=== PATIENT | female | born 1985 | race Asian ===

== ENCOUNTER 2019-09-05 14:25 | Outpatient (CLI) | payer BC, SELFPAY ==
--- NOTE | 2019-09-05 | XR_ITS ---
WS: [id number] PROCEDURE: XR chest 2V* [id number] CLINICAL INFORMATION: COUGH COMPARISON: None. FINDINGS: Heart: Normal cardiac silhouette. Lungs: Lungs are clear. No consolidation or pleural fluid. No acute pulmonary infiltrates. Bones: Normal visualized bony structures. XR/XR chest 2V* [id number] IMPRESSION: Normal chest
== END 2019-09-05 14:26 | disposition home or self-care (01) ==
LOC: RADOUTREAD 09-06 10:52
PROVIDERS: Family Provider Family Medicine; PCP Family Medicine; Visit Provider Family Medicine
DX: Z01.89 Encounter for other specified special examinations (principal)

== ENCOUNTER 2020-08-02 09:10 | Outpatient (CLI) | payer OTHER, SELFPAY ==
--- NOTE | 2020-08-02 09:18 | CT_ITS ---
WS: [id number] CT NECK WITH CONTRAST HISTORY: CHRONIC PHARYNGITIS TECHNIQUE: Contiguous 5 mm axial images are performed through the neck with intravenous contrast. Sag ittal and coronal reformats are also submitted. All CT scans at [facility] use at least o ne of these dose optimization techniques: automated exposure control; mA and/or kV adjustment per pat ient size (includes targeted exams where dose is matched to clinical indication); or iterative recons truction. CONTRAST: CONTRAST: Omnipaque 300; 95 mL IV. DLP: 1473.31 mGycm COMPARISON: None available. Nasopharynx, oropharynx, hypopharynx and larynx are unremarkable. No soft tissue masses or abnormal e nhancement. Torus tubarius and fossa of Rosenmuller and parapharyngeal fat are normal. No significant lymphadenopathy is identified. Thyroid gland and salivary glands are normally enhancing with no masses. No osseous abnormalities. Visualized portions of the skull base demonstrate no abnormalities. Orbits and globes are within norm al limits. No soft tissue masses. Small air-fluid levels in the maxillary sinuses. Lung apices are clear. CT/CT neck w con* [id number] IMPRESSION: 1. No neck mass or adenopathy. 2. Normal parotid glands. 3. Maxillary sinusitis.
[2020-08-02] MEDS: iohexol 300 mg/mL 100 mL Btl IV (09:46)
== END 2020-08-02 09:11 | disposition home or self-care (01) ==
LOC: RADWPI 09:17
PROVIDERS: PCP Family Medicine; Visit Provider Specialist
DX: J31.2 Chronic pharyngitis (principal); J37.0 Chronic laryngitis; J32.0 Chronic maxillary sinusitis
CPT/HCPCS: 70491; Q9967

== ENCOUNTER → 2020-08-06 13:30 | Outpatient (BNVA) | payer OTHER, SELFPAY | PROVIDERS: PCP Family Medicine; Visit Provider Obstetrics & Gynecology | DX: D25.0 Submucous leiomyoma of uterus (principal); Z12.4 Encounter for screening for malignant neoplasm of cervix | CPT/HCPCS: 88175 ==

== ENCOUNTER → 2020-08-12 08:12 | Outpatient (BNVA) | payer OTHER, SELFPAY | PROVIDERS: PCP Family Medicine; Visit Provider Obstetrics & Gynecology | DX: R10.2 Pelvic and perineal pain (principal) | CPT/HCPCS: 76830 ==

== ENCOUNTER → 2022-08-13 13:03 | Outpatient (BNVA) | payer SELFPAY | PROVIDERS: PCP Family Medicine; Visit Provider Obstetrics & Gynecology | DX: R10.2 Pelvic and perineal pain (principal); N85.2 Hypertrophy of uterus | CPT/HCPCS: 76830 ==

== ENCOUNTER 2024-01-04 01:24 | Emergency (ER) | payer OTHER, SELFPAY ==
[2024-01-04 01:26] VITALS: BP 108/47; PULSE 83; RESP 16; TEMP 36.6; O2SAT 98; BMI 22.1
--- NOTE | 2024-01-04 01:41 | W.ED.ALLEREA ---
HPI - Allergic Reaction General: Chief complaint: Allergic Reaction Stated complaint: allergic reaction Time Seen by Provider: 01/04/24 01:27 Source: patient Mode of arrival: ambulatory Limitations: no limitations History of Present Illness: HPI narrative: 38-year-old female states she has had a pruritic rash to her body that started today. She states has not been on antibiotics has not had urticaria before states the rash itches all over and seems like it is moving she denies any fever denies any cough she denies any shortness of breath or throat swelling. No history of allergic reactions before Associated symptoms: Deny abdominal pain, nausea or vomiting Review of Systems Const: Denies: fever(s), chills, body aches or change in appetite ENMT: Denies: throat pain or dental pain Card: Denies: chest pain Resp: Denies: dyspnea GI: Denies: abdominal pain, nausea, vomiting or diarrhea Musc: Denies: neck pain or back pain Skin/Breast: Reports: rash and pruritus Neuro: Denies: headache(s) PFSH ED PFSH: Medical History Well woman exam with routine gynecological exam Family History Denies family history of Colon cancer Ovarian cancer Diabetes Clotting disorder Hyperlipidemia Breast cancer Anesthesia complication Bleeding disorder Hypertension Uterine cancer Thyroid condition Stroke Social History Smoking and tobacco/nicotine status: former use of tobacco/nicotine Alcohol intake: never Substance/Drug Use: never Female Reproductive History: Date of last menstrual period: 12/21/23 Physical Exam Const: COMMON NORMALS: no acute distress, patient oriented x3 and healthy appearing HENMT: COMMON NORMALS: normocephalic and atraumatic HEAD & SCALP: normocephalic and atraumatic Neck/C-Spine: COMMON NORMALS: full ROM and supple Chest: COMMONS NORMALS: normal inspection of the chest Resp: COMMON NORMALS: normal respiratory effort, No retractions, No use of accessory muscles and clear to auscultation bilaterally AUSCULTATION: clear to auscultation bilaterally Cardio: COMMON NORMALS: regular rate, regular rhythm and No murmurs present (Cardio) RATE: regular rate RHYTHM: regular rhythm Neuro: COMMON NORMALS: patient oriented x3, moves all extremities and no focal motor deficits Psych: COMMON NORMALS: mental status grossly normal, Normal thought process present and cooperative THOUGHT PROCESS: Normal thought process present Skin: COMMON NORMALS: no wounds NARRATIVE SKIN EXAM: Urticarial rash noted to arms legs and trunk Course Vital Signs: Vital signs: Vital Signs Temperature 97.9 F 01/04/24 01:26 Pulse Rate 83 01/04/24 01:26 Respiratory Rate 16 01/04/24 01:26 Blood Pressure 108/47 01/04/24 01:26 Pulse Oximetry 98 01/04/24 01:26 Oxygen Delivery Me thod Room Air 01/04/24 01:26 MDM - Allergic Reaction Medical Decision Making Patient presents here with urticaria allergic reaction her rash is much improved here after meds she had no airway involvement she is stable for discharge will discharge charge home with prescription for EpiPen and steroid she is follow-up with PCP return if worsening. Medical Records I reviewed the patient's medical records. No radiology studies performed this visit Discharge Plan Discharge Patient Disposition: Home Clinical Impression: Urticaria, Allergic reaction Prescriptions: New prednisone 50 mg tablet 50 mg PO DAILY Qty: 5 0RF epinephrine [EpiPen 2-Ap] 0.3 mg/0.3 mL auto-injector 0.3 mg IM Q30M PRN (Reason: anaphylaxis) Qty: 2 0RF Rx Instructions: do not exceed 12 doses per 24 hrs No Action Acid Reflux Medication PO DAILY Discharge Orders: Discharge ED (Routine); Ordered 01/04/24 Ordered By: Noe Mora Referrals: Tamica Lester MD [Physician] - Discharge Diet: Advance as tolerated Discharge Activity: Resume usual activity Patient Instructions: Urticaria (ED), General Allergic Reaction (ED) Coding Level of Care Code ED [employer] for Mulugeta Irvin
[2024-01-04 01:45] VITALS: BP 111/63; PULSE 91; RESP 16; O2SAT 98
[2024-01-04] MEDS: methylPREDNISolone sod succ 125 mg/2 mL INJ IVP (01:52)
[2024-01-04] MEDS: famotidine 20 mg/2 mL INJ 40 MG IVP (01:55)
[2024-01-04] MEDS: diphenhydrAMINE 50 mg/mL SDV 1mL IVP (01:59)
[2024-01-04] MEDS: EPINEPHrine 1 mg/mL INJ 0.3 MG IM (02:03)
[2024-01-04] MEDS: ondansetron 2 mg/ML SDV 2 mL 4 MG IVP (02:03)
[2024-01-04 02:15] VITALS: BP 107/63; PULSE 79; RESP 16; O2SAT 100
[2024-01-04 02:30] VITALS: BP 107/58; PULSE 79; RESP 16; O2SAT 98
== END 2024-01-04 03:07 | disposition home or self-care (01) ==
PROVIDERS: Emergency Provider Emergency Medicine; PCP Family Medicine
DX: L50.0 Allergic urticaria (principal); Z87.891 Personal history of nicotine dependence
CPT/HCPCS: 96372; 96374; 96375; 99284; J0171; J1200; J2405; J2919; J3490

== ENCOUNTER → 2025-02-26 11:35 | Outpatient (BNVA) | payer OTHER, SELFPAY | PROVIDERS: PCP Family Medicine; Visit Provider Nurse Practitioner Women's Health | DX: Z32.01 Encounter for pregnancy test, result positive (principal) | CPT/HCPCS: 81025; 84702; 86850; 86900 ==

== ENCOUNTER 2025-03-19 06:21 | Outpatient (CLI) | payer OTHER, SELFPAY ==
--- NOTE | 2025-03-19 06:30 | US_ITS ---
WS: [id number] EARLY OBSTETRICAL ULTRASOUND (<14 WEEKS). HISTORY: Z34.91 - Encounter for supervision of normal , u... COMPARISON: None available. Single intrauterine gestational sac is identified. Cardiac activity at 165 BPM. Oracle-rump length measures 4.2 cm which corresponds to a gestation of 11w1d. Normal-appearing yolk sac and amnion demonstrated. No subchorionic hemorrhage. No free fluid. Neither ovary is identified. US/US OB <= 14 weeks fetus [id number] IMPRESSION: 1. Single intrauterine gestation of 11w1d with an EDC of 10/07/2025. 2. Normal cardiac activity.
== END 2025-03-19 06:22 | disposition home or self-care (01) ==
LOC: RAD 06:22
PROVIDERS: PCP Family Medicine; Visit Provider Nurse Practitioner Women's Health
DX: Z34.91 Encounter for supervision of normal pregnancy, unspecified, first trimester (principal)
CPT/HCPCS: 76801

== ENCOUNTER → 2025-04-03 08:14 | Outpatient (BNVA) | payer OTHER, SELFPAY | PROVIDERS: PCP Family Medicine; Visit Provider Nurse Practitioner Women's Health | DX: O09.819 Supervision of pregnancy resulting from assisted reproductive technology, unspecified trimester (principal) | CPT/HCPCS: 80307; 82950; 84315; 84443; 85025; 86592; 86762; 86803; 86850; 86900; 87086; 87340; 87491; 87591; 87661; 87806 ==

== ENCOUNTER → 2025-04-30 12:50 | Outpatient (BNVA) | payer OTHER, SELFPAY | PROVIDERS: PCP Family Medicine; Visit Provider Nurse Practitioner Women's Health | DX: O09.819 Supervision of pregnancy resulting from assisted reproductive technology, unspecified trimester (principal); Z3A.00 Weeks of gestation of pregnancy not specified | CPT/HCPCS: 82105; 84315 ==

== ENCOUNTER 2025-05-16 21:41 | Emergency (ER) | payer OTHER, SELFPAY ==
--- OUTSIDE RECORDS SUMMARY | 2025-05-16 21:46 | XMS_ITS | Data Portability ---
Author Organization [facility], [facility], [facility] Address [address] [place] [id number] Care Team Providers Care [employer] Director Name Role Phone YADIEL PICHARDO Primary Care Provider [phone] Assessment Encounter Date Assessment Date Assessment LastModified by Organization Details LastModified Time 01/07/2024 01/07/2024 avoid nsaids/aspiri n entirely! [email or web address] Not available 01/07/2024 13:52:23 Plan of Treatment Reminders Order Date Submit Date Provider Last Modified By Organization Details Last Modified Time Details Appointments None recorded. Lab beta-HCG, quantitat renata, serum or plasma - ORDERED BY DR KHANNA/ WILL FAX RESULTS 2024 025 [email or web address] [facility], [address] [place], [address], 11:35:36 progester one, serum 2024 025 [email or web address] [facility], [address] [place], [address], 11:35:35 progester one, serum - ordered by Dr. Khanna/ will fax results 2024 025 [email or web address] [facility], [address] [place], [address], 06:55:34 Referral None recorded. Procedures None recorded. Surgeries None recorded. Imaging XR, chest, 2 view 2023 024 [email or web address] [facility], [address] [facility] [address], [place], [address], 4 06:08:17 Medication Orders azithromy clau 250 mg tablet 2023 024 [id number], [address] [facility] [facility] [address], [address], [place], [address], 4 13:23:28 prednison e 10 mg tablet 2023 [facility] 15, [address], [place], [address], 4 17:56:49 hydroxyzi ne HCl 25 mg tablet 2023 [facility] 15, [address], [place], [address], 4 17:56:16 Zantac-36 0 (famotidi ne) 20 mg tablet 2023 024 [facility] 15, [address], [place], [address], 4 17:56:54 hydroxyzi ne HCl 25 mg tablet 2023 024 [email or web address] [facility] 15, [address], [place], [address], 4 12:49:18 Solu-Medr ol (PF) 125 mg/2 mL solution for injection 2023 024 [email or web address] Not available 13:36:21 Patient TargetsNo targets recorded. Patient InstructionsNo instructions recorded. Reason for Referral None Reported. Results Created Date Observation Date Name Description Value Unit Range Abnormal Flag Note LastModifiedBy Organization Detail LastModifiedTime 02/02/20 25 02/02/2025 PROGE STERO NE progesterone 45.2 NG/mL normal Refer ence Range s Femal e Folli cular Phase < 1.0 Lutea l Phase 2.6-2 1.5 Post menop ausal < 0.5 Pregn ondina 1st Trime ster 4.1-3 4.0 2nd Trime ster 24.0- 76.0 3rd Trime ster 52.0- 302.0 Not Available [facility] [address] [address] [place], [address], 02/02/2025 06:55:34 02/02/2002/02/2025 HCG, TOTAL , QN HCG, total, qn 188 mIU/m L high Refer ence Range Nonpr egnan t or preme nopau valeriano <5 Postm enopa usal <10 Value s from diffe rent assay metho ds may vary. The use of this assay to monit or or to diagn ose patie nts with cance r or any condi tion unrel ated to pregn ondina has not been clear ed or appro maureen by the FDA or the [facility] actur er of the assay . Not Available [facility] [address] [address] [place], [address], 02/02/2025 06:55:36 02/06/2002/06/2025 PROGE STERO NE progesterone 38.2 NG/mL normal Refer ence Range s Femal e Folli cular Phase < 1.0 Lutea l Phase 2.6-2 1.5 Post menop ausal < 0.5 Pregn ondina 1st Trime ster 4.1-3 4.0 2nd Trime ster 24.0- 76.0 3rd Trime ster 52.0- 302.0 Not Available [facility] [address] [place], [address], 02/06/2025 11:35:35 02/06/20 25 02/06/2025 HCG, TOTAL , QN HCG, total, qn 1366 mIU/m L high Refer ence Range Nonpr egnan t or preme nopau valeriano <5 Postm enopa usal <10 Value s from diffe rent assay metho ds may vary. The use of this assay to monit or or to diagn ose patie nts with cance r or any condi tion unrel ated to pregn ondina has not been clear ed or appro maureen by the FDA or the [facility] actur er of the assay . Not Available [facility] [address] [address], [place], [address], 02/06/2025 11:35:36 06/08/20 24 06/08/2024 XR, chest , 2 view No observ ation record ed. [email or web address] [facility] [address] [place], [address], 06/13/2024 14:46:14 Result Notes None recorded. Problems Name Problem SNOMED Code Status Onset Date Resolution Date Notes Provider Name and Address Organization Details Recorded Time Allergic rhinitis 10468219 Active 2022 Chip Kline MD [address] [place] [address], [phone] , [facility] 3 18:41:48 Gastroesophage al reflux disease 484322349 Active [address] [facility] 4 13:57:47 Female infertility 8466562 Active [address] [facility] 5 10:33:49 Problem Notes None recorded. Medical Equipment None Reported. Allergies No known drug allergies Medications Name Sig Start Date Stop Date Status Note LastModified by Organization Details LastModified Time BD Regular Bevel Bee 27 gauge x 1/2 USE TO INJECT GANIRELI X 06/08 completed Not Available Not Available Not Available prednison e 10 mg tablet TAKE 4 TABLETS BY MOUTH ONCE DAILY FOR 1 DAY THEN 3 ONCE DAILY FOR 1 DAY THEN 2 ONCE DAILY FOR 1 DAY THEN 1 ONCE DAILY FOR 1 DAY THEN DISCONTI NUE 06/08 completed Not Available Not Available Not Available doxycycli ne hyclate 100 mg capsule TAKE 1 CAPSULE BY MOUTH TWICE DAILY FOR 7 DAYS 11/21 completed Not Available Not Available Not Available azithromy clau 250 mg tablet TAKE 2 TABLETS (500 MG) BY ORAL ROUTE ONCE DAILY FOR 1 DAY THEN 1 TABLET (250 MG) BY ORAL ROUTE ONCE DAILY FOR 4 DAYS active Not Available Not Available No t Available tizanidin e 4 mg tablet PLEASE SEE ATTACHED FOR DETAILED DIRECTIO NS 11/10 completed Not Available Not Available Not Available sucralfat e 1 gram tablet TAKE 1 TABLET BY MOUTH BEFORE MEALS AND AT BEDTIME 11/10 completed Not Available Not Available Not Available NyQuil 7.5 mg-60 mg-30mg-1 000mg/30m L oral liquid Take by oral route. active Not Available Not Available No t Available betametha sone acetate and sodium phos 6 mg/mL suspensio n for injection Take 1 mL by injectio n route for 1 day. 11/21 completed Not Available Not Available Not Available famotidin e 20 mg tablet TAKE 1 TABLET BY MOUTH TWICE DAILY 06/08 completed Not Available Not Available Not Available benzonata te 100 mg capsule TAKE 1 CAPSULE BY MOUTH THREE TIMES DAILY NEEDED 11/21 completed Not Available Not Available Not Available pantopraz ole 40 mg tablet,de layed release TAKE 1 TABLET BY MOUTH EVERY DAY 11/10 completed Not Available Not Available Not Available prednison e 50 mg tablet 06/08 completed Not Available Not Available Not Available indometha clau 50 mg capsule TAKE 1 CAPSULE BY MOUTH EVERY 12 HOURS WITH FOOD 06/08 completed Not Available Not Available Not Available omeprazol e 20 mg capsule,d elayed release 1 qd 06/08 completed Not Available Not Available Not Available hydroxyzi ne HCl 25 mg tablet Take 1 tablet 3 times a day by oral route as needed, for itching, rash. 06/08 completed Not Available Not Available Not Available alcohol swabs USE DIRECTED 06/08 completed Not Available Not Available Not Available dexametha sone sodium phosphate 4 mg/mL injection solution Inject 1 mL by intramus cular route. 11/21 completed Not Available Not Available Not Available epinephri ne 0.3 mg/0.3 mL injection , auto-inje ctor active Not Available Not Available Not Available albuterol sulfate HFA 90 mcg/actua tion aerosol inhaler INHALE 2 PUFFS BY MOUTH EVERY 4 HOURS 11/21 completed Not Available Not Available Not Available fluticaso ne propionat e 50 mcg/actua tion nasal spray,tricia pension [place] 1 spray every day by intranas al route. 11/21 completed Not Available Not Available Not Available Clomid 50 mg tablet TAKE ONE TABLET BY MOUTH DAILY 06/08 completed Not Available Not Available Not Available [employer] USE DIRECTED FOR DISPOSAL OF NEEDLES/ SYRINGES 06/08 completed Not Available Not Available Not Available ganirelix 250 mcg/0.5 mL subcutane ous syringe INJECT 83MCG UNDER THE SKIN NEEDED 06/08 completed Not Available Not Available Not Available Ovidrel 250 mcg/0.5 mL subcutane ous syringe INJECT 2 FULL SYRINGES AT TIME OF TRIGGER DIRECTED 06/08 completed Not Available Not Available Not Available Follistim AQ 300 unit/0.36 mL subcutane ous cartridge INJECT 150 UNITS UNDER THE SKIN DAILY 06/08 completed Not Available Not Available Not Available DayQuil Liquicaps active Not Available Not Available No t Available Multi-Vit /Iron 11/21 completed 0; Recorded 05/14/20 22 7:31AM by Elis Ware LPN, Office Visit; Not Available Not Available Not Available Vitamin-C 11/21 completed 0; Recorded 05/14/20 22 7:31AM by Elis Ware LPN, Office Visit; Not Available Not Available Not Available Solu-Medr ol (PF) 125 mg/2 mL solution for injection Take 125 mg by injectio n route. 01/06 completed Not Available Not Available Not Available Enskyce 0.15 mg-0.03 mg tablet 06/08 completed Not Available Not Available Not Available Allergy 11/21 completed Not Available Not Available Not Available Easy Touch Luer Lock Syringe 1 mL USE TO DIVIDE GANIRELI X 06/08 completed Not Available Not Available Not Available Mucus D 60 mg-600 mg tablet,ex tended release TAKE 1 TABLET BY MOUTH TWICE A DAY NEEDED FOR CONGESTI ON 11/02 completed Not Available Not Available Not Available Follistim Pen Device subcutane ous pen injector USE TO INJECT FOLLISTI M 06/08 completed Not Available Not Available Not Available Vitals Date Recorded Body height Body mass index (BMI) Body weight Oxygen saturation Oxygen saturation in Arterial blood by Pulse oximetry Heart rate Respiratory rate Body temperature Systolic And Diastolic Provider Name and Address Organization Details Last Updated DateTime 4 162.56 cm 22.6 kg/m2 59551.4 7 g 99 % 99 % 92 /min 16 /min 97.7 [degF] 110/60 mm[Hg] Chelsea Vigil [facility] 4 14:51:32 Date Recorded Body height Body mass index (BMI) Body weight Body temperature Heart rate Oxygen saturation Oxygen saturation in Arterial blood by Pulse oximetry Systolic And Diastolic Provider Name and Address Organization Details Last Updated DateTime 4 162.56 cm 22.8 kg/m2 42189.7 9 g 97.9 [degF] 99 /min 99 % 99 % 92/60 mm[Hg] ELIS WARE [facility] 4 13:39:57 Date Recorded Body height Body mass index (BMI) Body weight Body temperature Oxygen saturation Oxygen saturation in Arterial blood by Pulse oximetry Heart rate Systolic And Diastolic Provider Name and Address Organization Details Last Updated DateTime 4 162.56 cm 23 kg/m2 76916.3 8 g 98.2 [degF] 99 % 99 % 97 /min 100/70 mm[Hg] HUMBERTO HINES [facility] 4 12:47:33 Social History Question Answer Notes LastModified by Organizat ion Details LastModified Time Tobacco Smoking Status Never Smoker ELIS WARE [facility] 11/22/2023 13:58:43 What Was The Date Of Your Most Recent Tobacco Screening? 01/05/2024 [email or web address] Information not available 01/05/2024 Sex: Unknown Functional Status Question Answer Note LastModified by Organizat ion Details LastModified Time Do you use any illicit or recreational drugs? No [email or web address] Information not available 11/22/2023 Do you or have you ever used any other forms of tobacco or nicotine? No Information not available 11/22/2023 What is your level of alcohol consumption? None [email or web address] Information not available 11/22/2023 Mental Status None recorded. Family History Relationship Description Onset Age of this Age Resolved Age Notes LastModified by Organization Details LastModified Time Father No current problems or disability [email or web address] Not available 11/03 13:58:23 Mother No current problems or disability [email or web address] Not available 11/03 13:58:23 Medical History Condition Response Coronary Artery Disease N Other N Gout N Kidney Stones N Blood Diseases N Hyperthyroidism N Blood Transfusion N Breast Cancer N Depression N Hypothyroidism N Lung Disease N COPD N Defects or Inherited Disease N Developmental or Behavioral Disorders N Breast Problem N Difficulty Swallowing N Anesthesia Complications N Meniere's disease N Anxiety Disorder N Muscle, Joint, or Bone Problems N Vision or Eye Problems N Arthritis N Polyps N Infertility N Cancer N Varicosities N Stroke N Endometriosis N Bladder or Kidney Problems N High Cholesterol N Liver Disease N Fibromyalgia N Headaches N Kidney Disease N Allergies/Hayfever N Heart Problems N Ear or Hearing Problems N Hospitalizations N Thyroid Problems N GI Problems N ADD/ADHD N Skin Problems N Eating Disorder N Anemia N Constipation N Mental Illness N Ovarian Cancer N Diabetes N Bedwetting N Seizures/Epilepsy N Tuberculosis N Eczema N Diverticulitis N Abuse/Domestic Violence N Asthma N Reflux/GERD N Hepatitis N Heart Disease N Pulmonary Embolism N Pre-Eclampsia N Hypertension N Chronic Ear Infections N Osteoporosis N Chicken Pox N Autism Spectrum Disorder (ASD) N Thrombophilias N Gynecological HistoryNo gynecological history recorded. Obstetrics History GPAL:G 3 P 1 0 2 2 Type Value Full Term 1 Spontaneous 2 Living 2 Total 3 Immunizations Vaccine Type Date Status Note Provider Nam e and Address Organization Details Recorded Time COVID-19, mRNA, LNP-S, PF, 100 mcg/0.5mL dose or 50 mcg/0.25mL dose 1 completed LOREN Salgado [facility] 04/19/2023 11:27:52 COVID-19, mRNA, LNP-S, PF, 100 mcg/0.5mL dose or 50 mcg/0.25mL dose 1 [facility] 04/19/2023 11:27:52 COVID-19, mRNA, LNP-S, PF, 100 mcg/0.5mL dose or 50 mcg/0.25mL dose 1 completed [facility] 04/19/2023 11:27:52 COVID-19, mRNA, LNP-S, bivalent, PF, 50 mcg/0.5 mL or 25mcg/0.25 mL dose 2 completed [facility] 04/19/2023 11:27:52 Influenza, split virus, quadrivalent, PF 2 completed [facility] 04/19/2023 11:27:52 Influenza, split virus, quadrivalent, PF 1 completed [facility] 04/19/2023 11:27:52 HPV9 4 completed ELIS WARE [facility] 11/22/2023 13:56:47 HPV9 4 completed ELIS WARE [facility] 11/22/2023 13:56:47 Influenza, split virus, trivalent, preservative 7 completed [facility] 04/19/2023 11:27:52 Influenza, split virus, trivalent, preservative 8 completed [facility] 04/19/2023 11:27:52 Past Encounters Encounter ID Performer Location Encounter Start Date Encounter Closed Date Diagnosis/Indication Diagnosis SNOMED-CT Code Diagnosis ICD10 Code Diagnosis IMO Codes Diagnosis Note [id number] Yadiel Pichardo MD [facility] ([facility]) [address] [place] [phone] 11/02/2022 11:48:40 11/02/2022 19:57:54 Allergic rhinitis 66748208 J30.9 Increased thirst 8674733 03 R63.1 [id number] Yadiel Pichardo MD [facility] ([facility]) [address] [place] [phone] 5 11/10/2022 12:33:21 11/10/2022 17:38:43 Screening mammography 51212068 Z12.31 Liver func tion tests outside reference range 445223571 R94.5 she thinks she might have hep b. will evaluate. [id number] RENALDO PICHARDO PA-C [facility] ([facility]) [address] [place] [phone] 5 04/19/2023 11:10:01 04/19/2023 12:28:19 Acute bronchitis 61165381 J20.9 [id number] Chip Kline MD [facility] ([facility]) [address] [place] [phone] 5 04/22/2023 18:18:52 05/03/2023 14:48:08 Allergic rhinitis 02059304 J30.9 Cough 62336753 R05.9 [id number] Yadiel Pichardo MD [facility] ([facility]) [address] [place] [phone] 11/22/2023 13:41:44 11/22/2023 15:13:05 Female infertility 7666180 N97.9 [id number] ADELIA COMBS [facility] ([facility]) [address] [place] [id number] 5 01/05/2024 14:33:32 01/05/2024 15:35:39 Urticaria 707392877 L50.9 Discussed to continue the prednisone as prescribed . Will have the patient start famotidine and hydroxyzin e.Pt has no oral involvemen t. Has never had wheezing/s ob with her symptoms. Pt states she has an appt with her PCP next week. 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 9 [id number] Yadiel Pichardo MD [facility] ([facility]) [address] [place] [id number] 5 06/08/2024 12:35:05 06/10/2024 06:08:16 Cough 37940316 R05.9 it is getting better gradually over the last month.prol onged cough. mycoplasma has been present will tx with azithromyc in and supportive care. [id number] Yadiel Pichardo MD [facility] ([facility]) [address] [place] [phone] 02/01/2025 10:50:50 02/02/2025 12:45:51 Female infertility 1837685 N97.9 [id number] 36066 9005 Z32.00 1345986 [id number] Yadiel Pichardo MD [facility] ([facility]) [address] [place] [phone] 5 02/05/2025 12:24:08 02/06/2025 11:40:32 detection examination 82128329 Z32.00 [id number] Health Concerns Section Related Observation LastModified by Organization Detai ls LastModified Time None Recorded Concern Status LastModified by Organization Details LastModified Time None Recorded Advance Directives Directive None Recorded Payers Insurance Date Sequence Insurance Name Policy Number Policy Ardon Covered Member ID Ardon Member ID Guarantor Name 02/05/2025 1 [employer] - IF[employer] (PPO) [id number] Alondra MORALES [id number] Alondra MORALES 01/05/2024 1 *SELF PAY* Leo MORALES 04/19/2023 1 [employer] - [employer] (PPO) IFB Rosieleo Thomas [id number] Alondra MORALES Notes Date Note Type Note Provider Name and Address Organization Details Recorded Time 01/05/20 24 text/htm l General Rash/Skin LesionReported by PatientHPIFor quality, patient reportsitchy,painful,red, andmultiple. For location, patient reportsneck,back,legs, andother: (entire body). For severity, patient reportsmoderateandworsening. For duration, patient reportshas noted for <1 week. For onset/timing, patient reportsgradual onsetandrecurring. For context, patient reportsno new detergents or skin productsandno one else with similar rash. For associated symptoms, patient reportsno feverandno cold symptoms.ROS as noted in the HPI Pt presents with c/o breaking out in a whole body rash on Wednesday. She went to the ER and was started on 50 mg prednisone and given 2 epi pens. Pt states her rash was resolved for 24 hours after the ER visit. She has continued the prednisone but the rash returned. Her administered the epi pen and pt states that helped her sleep. The rash improved a little but did not resolve so the administered the second epi pen. Pt states there have been no changes to foods or products at home. No recent stress or illness. Denies hx of sensitive skin/rashes. No recent travel. ADELIA COMBS [address] [place], [address], [facility] 01/06/2024 11:28:00 01/07/20 24 text/htm l Rash/Skin LesionReported by PatientHPIFor quality, patient reportsitchy. For associated symptoms, patient reportsdiarrhea. For location, patient reportswhole body. For severity, patient reportssevere. For duration, patient reports5 days. For timing, patient reportsabrupt. For alleviating factors, patient reportsoral steroid.patient is currently taking zyrtec, famotidine, hydroxyzine and prednisone. She has one day left of the prednisone. She reports that during the day the rash is better, but around midnight-4 am the rash will flare up. she shows pictures of extensive hives this morning. very mild hives right now Yadiel Pichardo MD [address] [place], [address], [facility] 01/07/2024 14:08:29 06/08/20 24 text/htm l CoughReported by PatientHPIFor associated symptoms, patient reportsthroat clearingandnasal dischargebut reportsno feverandno chills. For quality, patient reportsproductive. For duration, patient reportsconstant. For context, patient reportsnon-smoker.ROS as noted in the HPI she coughs at midnight a lot waking her up. she coughs more after laying down. no fever no chills no breathing difficulty. no sputum production. Yadiel Pichardo MD [address] [place] [address], [phone], [facility] 06/08/2024 13:23:45 OBGyn Episode No OBEpisode recorded.
--- NOTE | 2025-05-16 22:01 | W.ED.GENADLT ---
HPI - General Adult General: Chief complaint: Vaginal Bleeding Stated complaint: 18 wks preg, Bleeding Time Seen by Provider: 05/16/25 21:53 History of Present Illness: 40yo F w/LMP of 12/29/2024 s/p IVF w/cc of vaginal bleeding. She is a patient of Dr. Cano. She is at 18w4 days today. She states she was in the shower when she noted vaginal bleeding, describes it similar to a menstrual cycle. Bleeding is painless. It has now abated. She denies any lightheadedness, chest pain, shortness of breath or syncope. Patient denies dysuria. Patient denies blood in stool or melena. She does not take any medications. Related Data Home Medications ?Medication ?Instructions ?Recorded ?Confirmed docosahexaenoic acid 200 mg mg PO 02/26/25 04/30/25 capsule ( DHA) estradiol 0.1 mg/24 hr semiweekly transdermal 02/26/25 04/30/25 transdermal patch (Vivelle-Dot) Previous Rx's ?Medication ?Instructions ?Recorded epinephrine 0.3 mg/0.3 mL 0.3 mg (0.3 mL) IM Q30M PRN 01/04/24 injection, auto-injector (EpiPen anaphylaxis #2 ea 2-Ap) Allergies Allergy/AdvReac Type Severity Reaction Status Date / Time No Known Allergies Allergy Verified 04/30/25 12:49 [facility] ED PFSH: Medical History (Updated 05/17/25 @ 00:09 by Elisa Magallanes MD) Acid reflux disease Well woman exam with routine gynecological exam Surgical History No history of previous surgery Family History Denies family history of Colon cancer Ovarian cancer Diabetes Clotting disorder Hyperlipidemia Breast cancer Anesthesia complication Bleeding disorder Hypertension Uterine cancer Thyroid disease Stroke Social History Smoking and tobacco/nicotine status: never used tobacco/nicotine Alcohol intake: never Substance/Drug Use: never Physical Exam Narrative: EXAM NARRATIVE: Vital signs were reviewed. Patient is alert and oriented. Patient is breathing comfortably, no increased WOB or accessory muscle use. SpO2 is above 95% on RA. Patient has clear lungs b/l, no rhonchi, wheezing or crackles. No hypotension or tachycardia. Abdomen is gravid and nontender. On BSUS, I appreciate HR and movement, Patient is moving all extremities, no deformity or gross injury. No lower extremity edema or asymmetry. Course Vital Signs: Vital signs: Vital Signs Temperature 97.8 F 05/16/25 22:17 Pulse Rate 72 05/17/25 00:00 Respiratory Rate 20 H 05/16/25 23:22 Blood Pressure 101/54 05/17/25 00:00 Pulse Oximetry 95 05/17/25 00:00 Oxygen Delivery Me thod Room Air 05/16/25 22:17 MDM - General Adult Medical Decision Making 40-year-old female at 18w4d of gestation presents with a chief complaint of painless, atraumatic vaginal bleeding. Differential diagnosis includes, is limited to, placenta previa, polyp, uterine fibroid, subchorionic hematoma, placenta accreta, other. Bedside ultrasound demonstrates heart rate and movement. Patient was evaluate CBC, BMP, UA and type and screen. Patient has a normal white blood cell count and is not anemic. She does not have any actionable electrolyte abnormalities and has normal kidney function. UA is contaminated, will advise repeat UA. Discussed w/Dr. Cano, who examined patient, noted a low lying placenta. Recommended DC and close follow up in the office tomorrow. Patient was counseled on supportive care at home, given return precautions and discharged in stable condition with recommendation for outpatient follow-up with primary care nurse or doctor. Lab Data 05/16/25 22:34 05/16/25 22:34 Laboratory Results WBC 9.83 10^3/uL (3.29-11.43) 05/16/25 22:34 RBC 4.03 10^6/uL (3.85-5.65) 05/16/25 22:34 Hgb 11.90 g/dL (11.27-16.99) 05/16/25: Hct 34.7 % (36-47) L 05/16/25 22:34 MCV 86.1 fl (85-98) 05/16/25 22: MCH 29.5 pg (27-33) 05/16/25: MCHC 34.3 g/dL (30-55) 05/16/25 22:34 RDW 13.2 % (12.1-15.1) 05/16/25 22:34 Plt Count 281 10^3/cmm (157-399) 05/16/25 22:34 MPV 8.5 fL (7.4-10.4) 05/16/25 22:34 Neut % (Auto) 71.7 % 05/16/25 22: Lymph % (Auto) 19.2 % 05/16/25 22:34 [place] % (Auto) 7.0 % 05/16/25 22:34 Eos % (Auto) 1.7 % 05/16/25 22: Baso % (Auto) 0.1 % 05/16/25: Neut # (Auto) 7.04 10^3/uL (1.8-7.7) 05/16/25: Lymph # (Auto) 1.9 10^3/uL (0.8-4.8) 05/16/25 22: [place] # (Auto) 0.7 10^3/uL (0.2-0.9) 05/16/25 22:34 Eos # (Auto) 0.2 10^3/uL (0.0-0.8) 05/16/25:34 Baso # (Auto) 0.0 10^3/uL (0.0-0.1) 05/16/25 22:34 Nucleated RBC % (auto) 0 % 05/16/25 22: Nucleated RBCs # 0.0 /100WBC 05/16/25 22:34 Sodium 139 mmol/L (136-145) 05/16/25 22:34 Potassium 3.7 mmol/L (3.5-5.1) 05/16/25 22:34 Chloride 105 mmol/L (98-107) 05/16/25 22:34 Carbon Dioxide 20 mmol/L (22-29) L 05/16/25 22:34 Anion Gap 17.7 (5-19) 05/16/25 22:34 BUN 7 mg/dL (6-20) 05/16/25 22:34 Creatinine 0.4 mg/dL (0.5-0.9) L 05/16/25 22:34 GFR Calculation 175.9 mL/min (90-130) H 05/16/25 22: Glucose 79 mg/dL (65-115) 05/16/25: Calculated Osmolality 285 mOsm/kg (285-295) 05/16/25: Calcium 8.9 mg/dL (8.5-10.5) 05/16/25: Urine Color [place] (Yellow) A 05/16/25: Urine Appearance Clear (CLEAR) 05/16/25: Urine pH 6.0 (5-7) 05/16/25: Ur Specific [place] 1.010 (1.005-1.030) 05/16/25: Urine Protein Trace (Negative) A 05/16/25 Urine Glucose (UA) Negative (Normal) 05/16/25: Urine Ketones Negative (Negative) 05/16/25: Urine Blood 3+ (Negative) A 05/16/25: Urine Nitrate Negative (Negative) 05/16/25: Urine Bilirubin Negative (Negative) 05/16/25: Urine Urobilinogen 0.2 mg/dL (Negative) 05/16/25: Ur Leukocyte Esterase 1+ (Negative) A 05/16/25: Urine RBC 3-5 /hpf (0-2) 05/16/25: Urine WBC 11-20 /hpf (0-5) H 05/16/25 22: Ur Squamous Epith Cells 6-10 /hpf (0-5) 05/16/25: Amorphous Sediment Not Reportable 05/16/25: Urine Bacteria 1+ /hpf (NONE) H 05/16/25: Hyaline Casts 0.40 /lpf 05/16/25 22: Blood Type O Positive 05/16/25:34 Rho(D) Type Rh positive 05/16/25 22: No radiology studies performed this visit Discharge Plan Discharge Patient Disposition: Home Clinical Impression: Antepartum bleeding, second trimester Condition: Stable Prescriptions: No Action estradiol [Vivelle-Dot] 0.1 mg/24 hr patch semiweekly transdermal DHA 200 mg capsule PO EpiPen 2-Ap 0.3 mg/0.3 mL auto-injector 0.3 mg IM Q30M PRN (Reason: anaphylaxis) Qty: 2 0RF Rx Instructions: do not exceed 12 doses per 24 hrs Discharge Orders: Discharge ED (Routine); Ordered 05/17/25 Ordered By: Elisa Magallanes Referrals: Kojo Priest MD [Primary Care Provider, [facility]] Patient Instructions: Opioid Safety, Pain Management, Patient Portal & Rowdy Instructions Activity Restrictions/Additional Instructions: Please continue to monitor your condition closely at home. If your condition worsens or additional concerns arise, please return promptly to the emergency department for reassessment. Follow up with Dr. Cano tomorrow in office. Please talk to him about repeating urinalysis as today's sample was contaminated. Print Language: Nauruan Coding Level of Care Code ED Can Crimper for Mulugeta Irvin
[2025-05-16 22:17] VITALS: BP 112/50; PULSE 75; RESP 16; TEMP 36.6; O2SAT 94; BMI 24.9
[2025-05-16 22:40] VITALS: BP 106/59; PULSE 74; RESP 16; O2SAT 97
[2025-05-16 22:47] LABS: Hematocrit 34.7 % (36-47); Hemoglobin 11.90 g/dL (11.27-16.99); Mean Corpuscular HGB Conc 34.3 g/dL (30-55); Mean Corpuscular Hemoglobin 29.5 pg (27-33); Mean Corpuscular Volume 86.1 fl (85-98); Nucleated Red Blood Cells % 0 %; Platelet Count 281 10^3/cmm (157-399); Red Blood Count 4.03 10^6/uL (3.85-5.65); White Blood Count 9.83 10^3/uL (3.29-11.43)
[2025-05-16 22:52] VITALS: PULSE 70; RESP 16; O2SAT 94
[2025-05-16 23:08] LABS: Anion Gap 17.7 (5-19); Blood Urea Nitrogen 7 mg/dL (6-20); Calcium 8.9 mg/dL (8.5-10.5); Carbon Dioxide 20 mmol/L (22-29); Chloride 105 mmol/L (98-107); Creatinine Clr Calc Pharmacy 172.7658; Glucose 79 mg/dL (65-115); Osmolality Calculated 285 mOsm/kg (285-295); Potassium 3.7 mmol/L (3.5-5.1); Sodium 139 mmol/L (136-145)
[2025-05-16 23:14] LABS: Glucose Urine UA Negative (Normal); Nitrate Urine Negative (Negative); Specific Gravity, Urine 1.010 (1.005-1.030)
[2025-05-16 23:19] LABS: Add Urine Microscopic? YES
[2025-05-16 23:22] VITALS: BP 101/59; PULSE 72; RESP 20; O2SAT 96
--- NOTE | 2025-05-16 23:50 | PM.OBGYCN ---
Providers/Reason for Consult Consulting Physican/Specialty*: Phong Cano MD, OB-Creative Technologist Reason for Consult*: 18 w 4 d vaginal bleeding Primary SR SOLUTIONS CONSULTANT: Phong Cano MD Primary Care Provider: Kojo Priest MD [employer] SOLUT[employer] CONSULTANT Consult HPI History of Present Illness Armando Parham is a 40 year old female A2 EDC October 13, 2025 At 18 w 4 d result of IVF has been uncomplicated until this evening While taking shower, had bright red bleeding like a period No pain, cramping No history of intercourse or trauma Last intercourse was prior to No further bleeding after arriving in ER Medications/Allergies Home Medications ?Medication ?Instructions ?Recorded ?Confirmed ?Last Taken ?Type epinephrine 0.3 mg/0.3 mL 0.3 mg (0.3 mL) IM Q30M PRN 01/04/24 04/30/25 Unknown Rx injection, auto-injector (EpiPen anaphylaxis #2 ea 2-Ap) docosahexaenoic acid 200 mg mg PO 02/26/25 04/30/25 Unknown History capsule ( DHA) estradiol 0.1 mg/24 hr semiweekly transdermal 02/26/25 04/30/25 Unknown History transdermal patch (Vivelle-Dot) Allergies Allergy/AdvReac Type Severity Reaction Status Date / Time No Known Allergies Allergy Verified 04/30/25 12:49 PFS SR SOLUTIONS CONSULTANT PFSH: Medical History (Updated 05/17/25 @ 00:09 by Elisa Magallanes MD) Acid reflux disease Well woman exam with routine gynecological exam Surgical History No history of previous surgery Family History Denies family history of Colon cancer Ovarian cancer Diabetes Clotting disorder Hyperlipidemia Breast cancer Anesthesia complication Bleeding disorder Hypertension Uterine cancer Thyroid disease Stroke Social History Smoking and tobacco/nicotine status: never used tobacco/nicotine Alcohol intake: never Substance/Drug Use: never Other Female Reproductive History: Hx Age of Menarche: 17 Vitals/I&O/Wt Last Vital Signs Temp 97.8 F 05/16/25 22:17 Pulse 72 05/17/25 00:00 Resp 20 H 05/16/25 23:22 BP 101/54 05/17/25 00:00 Pulse Ox 95 05/17/25 00:00 O2 Del Method Room Air 05/16/25 22:17 Weight last 48 hrs Weight 145 lb Physical Exam Narrative: VS normal General comfortable Abd: soft, nontender Bedside sono by me: single IUP Normal heart motion Active movements Normal [place] Placenta anterior, no previa; possibly low-lying Data 05/16/25 22:34 05/16/25 22:34 A&P Assessment and plan 1. , unspecified gestational age: 18 w 4 d 2. Antepartum bleeding, second trimester: Episode of vaginal bleeding Fetus viable on bedside sono Plan ob sono in the morning to be done in clinic Patient can be discharged to home Return to clinic to see me May 17, 2025 at 1330 for ob sono Return to ER if pain, cramping, bleeding PDMP PDMP Reviewed: Not Reviewed Coding Level of Care Code Acute Code for Chg Fwd Diagnoses , unspecified gestational age Z34.90 Weeks of gestation: unspecified Antepartum bleeding, second trimester O46.92
[2025-05-17] VITALS: BP 101/54; PULSE 72; O2SAT 95
== END 2025-05-17 01:51 | disposition home or self-care (01) ==
PROVIDERS: Emergency Provider Emergency Medicine; PCP Family Medicine
DX: O46.92 Antepartum hemorrhage, unspecified, second trimester (principal); Z3A.20 20 weeks gestation of pregnancy
CPT/HCPCS: 80048; 81001; 85025; 86850; 86900; 87086; 99283

== ENCOUNTER 2025-05-17 12:01 | Outpatient (CLI) | payer OTHER, SELFPAY ==
--- NOTE | 2025-05-17 12:00 | US_ITS ---
WS: [id number] Limited obstetrical ultrasound. HISTORY: Threatened , vaginal bleeding. COMPARISON: 03/19/2025. Single intrauterine gestation is identified. Placenta is anterior and covers the cervical os. There is a small cystic area along the lower placenta which is probably a small placental starr or resolving subchorionic hematoma. No acute hematoma identified. The cervix is closed. No cervical hematoma identified. Single gestation with a heart rate of 169 bpm is identified. US/ OB limited [id number] IMPRESSION: 1. Anterior placenta with placenta previa. A very small portion of placenta cov ers the internal cervical os. Cystic changes within the inferior placenta may b e from a small placental starr or resolved hematoma. 2. Cervix is closed. 3. Normal heart rate. Notified Phong Cano MD at 05/17/2025 1:38 PM.
== END 2025-05-17 12:02 | disposition home or self-care (01) ==
LOC: RAD 12:01
PROVIDERS: PCP Family Medicine; Visit Provider Obstetrics & Gynecology
DX: O46.92 Antepartum hemorrhage, unspecified, second trimester (principal); M46.92 Unspecified inflammatory spondylopathy, cervical region
CPT/HCPCS: 76815; 84315

== ENCOUNTER → 2025-07-04 15:39 | Outpatient (BNVA) | payer OTHER, SELFPAY | PROVIDERS: PCP Family Medicine; Visit Provider Obstetrics & Gynecology | DX: O09.812 Supervision of pregnancy resulting from assisted reproductive technology, second trimester (principal); Z3A.25 25 weeks gestation of pregnancy | CPT/HCPCS: 84315 ==